=== PATIENT | male | born 1970 | race Caucasian/White ===

== ENCOUNTER → 2018-05-12 | Outpatient (CLI) | payer BC, OTHER | LOC: ULTRA 04-17 13:52 | DX: I86.1 Scrotal varices (principal); K40.20 Bilateral inguinal hernia, without obstruction or gangrene, not specified as recurrent ==

== ENCOUNTER 2018-06-19 22:02 | Emergency (ER) | payer BC, OTHER ==
[~2018-06-19] VITALS: Ht 188 cm; Wt 81.7 kg
[2018-06-19] MEDS ORDERED: NOHOMEMEDICATIONS (22:14)
[2018-06-19 23:12] VITALS: BP 129/83
== END 2018-06-19 23:12 | disposition home or self-care (01) ==
LOC: ER 22:02
DX: S01.01XA Laceration without foreign body of scalp, initial encounter (principal); F10.129 Alcohol abuse with intoxication, unspecified; F17.210 Nicotine dependence, cigarettes, uncomplicated; W19.XXXA Unspecified fall, initial encounter; Y93.89 Activity, other specified; Y92.89 Other specified places as the place of occurrence of the external cause; Y99.8 Other external cause status

== ENCOUNTER 2018-11-27 10:27 | Inpatient (IN) | payer OTHER ==
[~2018-11-27] VITALS: Ht 177.8 cm; Wt 60.3 kg
[~2018-11-27 10:27] MED LIST: NOHOMEMEDICATIONS
[2018-11-27 10:28] VITALS: BP 137/89
[2018-11-27 11:38] LABS: ABSOLUTE NEUTROPHILS 6.7 thou/uL (1.4-8.2); BASOPHILS 0.5 % (0.0-2.0); EOSINOPHILS 0.6 % (0.0-3.0); HEMATOCRIT 39.7 % (42.0-52.0); HEMOGLOBIN 13.6 gm/dL (14.0-18.0); LYMPHOCYTES 12.9 % (24.0-44.0); MCH 30.2 pg (26.0-34.0); MCHC 34.2 g/dL (28.0-37.0); MCV 88.3 fL (80.0-100.0); MONOCYTES 7.9 % (1.0-8.0); PLATELET COUNT 293 thou/uL (150-400); POLYS 78.1 % (36.0-66.0); RDW 14.1 % (10.5-14.5); WBC 8.6 thou/uL (4.0-11.0)
[2018-11-27 11:45] LABS: CALCIUM 8.9 mg/dL (8.5-10.1); CREATININE 0.8 mg/dL (0.7-1.3); POTASSIUM 3.6 mmol/L (3.5-5.1)
[2018-11-27 12:15] VITALS: BP 125/85
[2018-11-27 12:18] VITALS: BP 136/88
[2018-11-27 15:14] VITALS: BP 115/76
[2018-11-27 20:02] VITALS: BP 100/70
[2018-11-28 05:02] LABS: CHOLESTEROL 145 mg/dL (<200); HDL CHOLESTEROL 59 mg/dL (>40); LDL CHOLESTEROL 75 mg/dL (<100); TC:HDL 2.5 Ratio (Not establshd); TRIGLYCERIDE 55 mg/dL (<150); VLDL 11 mg/dL (<40)
[2018-11-28 05:10] LABS: SERUM ASSESSMENT Clear
[2018-11-28 05:37] VITALS: BP 93/57
[2018-11-28 07:25] VITALS: BP 96/54
--- NOTE | 2018-11-28 12:51 | EKG ---
[address] [place] [address] ELECTROCARDIOGRAM REPORT Name: ELA STORM Room #: 464-P ADM IN M.R.#: [id number] ������������������ Admission: 11/27/18 ������������������ Attend Phys: Josue Morrison MD Discharge: ������������������ Date of : 68 Report #: [id number] ����������������������������������������������������������������� [id number] THIS REPORT FOR: //name// [facility] Test Date: 2018-11-27 Test Time: 14:31:47 Pat Name: ELA STORM Department: Room: 464 Gender: M Home Support Worker: Alberto CARLTON : 1970 Requested By: Mary Jane Pacheco Order Number: [id number] MD: Jose Gillis Measurements Intervals [place] Rate: 79 P: 68 IN: 155 QRS: 53 QRSD: 89 T: 56 QT: 393 QTc: 451 Interpretive Statements Sinus rhythm Normal tracing No previous ECG available for comparison Electronically Signed On 11-28-2018 12:51:30 CDT by Jose Gillis [email or web address] ��������������������������������������������� <ELECTRONICALLY SIGNED> ���������������������������������������� By: Jose Gillis MD, [facility] ��������������������������������������������� 11/28/18 1251 1431 1431 Jose Gillis MD, FACC /EPI
[2018-11-28 15:03] VITALS: BP 118/80
[2018-11-28 15:30] VITALS: BP 128/86
[2018-11-28 16:00] VITALS: BP 118/78
[2018-11-29 00:08] VITALS: BP 107/82
[2018-11-29 04:04] VITALS: BP 109/74
[2018-11-29 07:28] VITALS: BP 123/63
--- NOTE | 2018-11-29 12:06 | O ---
[facility] [place] [address] OPERATIVE REPORT Name: ELA STORM Room #: 464-P ADM IN M.R.#: [id number] Admission: 11/27/18 ������������������ Attend Phys: Josue Morrison MD Discharge: ������������������ Date of : 68 Report #: [id number] THIS REPORT FOR: //name// CC: EVIN physician/PCP Josue Morrison DATE OF SERVICE: 11/28/2018 SERVICE: Orthopedics. FACILITY: [facility]. SURGEON: Theo Ma MD SOCIAL MEDIA PROJECT MANAGER: Ofe Montalvo. PREOPERATIVE DIAGNOSES: 1. Right toe pain. 2. Right toe distal phalanx osteomyelitis. 3. Right toe open wound. 4. Right toe cellulitis. POSTOPERATIVE DIAGNOSES: 1. Right toe pain. 2. Right toe distal phalanx osteomyelitis. 3. Right toe open wound. 4. Right toe cellulitis. PROCEDURE: Right second toe amputation. COMPLICATIONS: None. DRAINS: None. SPECIMENS: Second toe. ANESTHESIA: General. HISTORY: The patient is a 48-year-old gentleman who was admitted to the hospital yesterday with worsening infection of the right toe after stubbing and developing a wound that went untreated for approximately one month. He had x-rays that showed destruction of the distal phalanx. He had a wound that was not salvageable. Plans were made for definitive treatment. He understood the risks, benefits, alternatives and indications for surgery. He was in favor of amputation of the toe in order to preserve the foot and prevent sepsis. Risks include but not limited to pain, bleeding, infection, injury to nerves or blood [facility] [address] [place] [address] OPERATIVE REPORT Name: ELA STORM Room #: 464-P ADM IN M.R.#: [id number] Admission: 11/27/18 ������������������ Attend Phys: Josue Morrison MD Discharge: ������������������ Date of : 68 Report #: [id number] vessels, persistent pain despite surgical intervention, progression of the infection, need for further surgery as well as complications related to anesthesia up to and including . PROCEDURE IN DETAIL: After right lower extremity was correctly identified in preoperative holding area as the operative extremity, the patient was taken to the operating room and general anesthesia was induced without complication. Right leg was prepped and draped in standard sterile fashion. Timeout procedure performed. He is receiving antibiotics on the floor. A tourniquet was applied to the right thigh, but no tourniquet was utilized for the surgery. A fishmouth type incision was made over the proximal phalanx proximal to the necrotic wound. Full thickness skin flaps were developed down to the proximal phalanx, which was exposed and an elevator was used to dissect the periosteum proximally. Bone cutter was used to transect the proximal phalanx at the proximal metaphysis and the sharp edges were then resected with the rongeur. The wound was irrigated. The flexor and extensor tendons were repaired one another closing over the bone with a 2-0 PDS suture. The skin was then closed with 3-0 nylon. Sterile dressing was applied. The patient then underwent placement of ankle block by the anesthesia team. He was taken to recovery room in stable condition. No complications. All counts were recorded as correct. ��������������������������������������������� <ELECTRONICALLY SIGNED> ���������������������������������������� By: Theo Ma MD ��������������������������������������������� 11/29/18 1206 0630 0722 Theo Ma MD /nt
[2018-11-29 15:04] VITALS: BP 110/66
[2018-11-29 20:45] VITALS: BP 110/73
[2018-11-30 03:32] VITALS: BP 101/59
[2018-11-30 08:00] VITALS: BP 109/67
[2018-11-30] MEDS ORDERED: AUGMENTIN 875-1 EACH PO (11:32)
[2018-11-30] MEDS ORDERED: LEVAQUIN 500 M500 M3 PO (11:32)
[2018-11-30 11:48] VITALS: BP 109/67
== END 2018-11-30 16:52 | disposition home or self-care (01) | DRG 580 ==
LOC: ER 10:27 → 4W 12:06 → EROBS 12:06 → 4W 12:31
PROVIDERS: Nurse Practitioner; Physician Assistant; ADMIT Internal Medicine
PROC: 0Y6R0Z3 Detachment at Right 2nd Toe, Low, Open Approach (ICD-10-PCS; principal; 2018-11-28)
DX: L03.031 Cellulitis of right toe (principal); M86.671 Other chronic osteomyelitis, right ankle and foot; F12.90 Cannabis use, unspecified, uncomplicated; Z72.89 Other problems related to lifestyle; Z23 Encounter for immunization; Z79.899 Other long term (current) drug therapy
CPT/HCPCS: 10040; 10045; 50010; 50101; 50386; 56525; 56527; 57091; 62110; 62900; 70005

== ENCOUNTER 2019-02-19 19:05 | Emergency (ER) | payer OTHER ==
[~2019-02-19] VITALS: Ht 177.8 cm; Wt 72.6 kg
[~2019-02-19 19:05] MED LIST changes: +AUGMENTIN 875-1 EACH PO; +LEVAQUIN 500 M500 M3 PO
[2019-02-19 20:02] LABS: BASOPHILS 0.7 % (0.0-2.0); EOSINOPHILS 1.2 % (0.0-3.0); HEMOGLOBIN 13.3 gm/dL (14.0-18.0); LYMPHOCYTES 32.3 % (24.0-44.0); MONOCYTES 8.2 % (1.0-8.0); PLATELET COUNT 241 thou/uL (150-400); POLYS 57.6 % (36.0-66.0); RBC 4.28 mil/uL (4.50-6.00); RDW 13.5 % (10.5-14.5); WBC 5.1 thou/uL (4.0-11.0)
[2019-02-19 20:09] LABS: CALCIUM 8.6 mg/dL (8.5-10.1); CREATININE 0.7 mg/dL (0.7-1.3); POTASSIUM 3.2 mmol/L (3.5-5.1)
[2019-02-19 20:16] LABS: ALBUMIN 3.4 g/dL (3.4-5.0); TOTAL BILIRUBIN 0.1 mg/dL (<0.1-1.0); TOTAL PROTEIN 6.5 g/dL (6.4-8.2)
[2019-02-19] MEDS ORDERED: NORCO 7.5-3251 EACH PO (22:02)
[2019-02-19 23:35] VITALS: BP 140/90
== END 2019-02-19 23:36 | disposition home or self-care (01) ==
LOC: ER 19:05
PROVIDERS: Physician Assistant
DX: S42.112A Displaced fracture of body of scapula, left shoulder, initial encounter for closed fracture (principal); S40.212A Abrasion of left shoulder, initial encounter; I10 Essential (primary) hypertension; F17.210 Nicotine dependence, cigarettes, uncomplicated; Z98.890 Other specified postprocedural states; V18.4XXA Pedal cycle driver injured in noncollision transport accident in traffic accident, initial encounter; Y93.89 Activity, other specified; Y92.828 Other wilderness area as the place of occurrence of the external cause; Y99.8 Other external cause status